=== PATIENT | male | born 1995 | race Caucasian/White ===

== ENCOUNTER 2017-06-15 15:25 | Emergency (ER) | payer OTHER ==
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
--- NOTE | 2017-06-15 16:03 | ED MED RECONCILIATION SUMMARY ---
Patient: ELEAZAR RAMIREZ Medication Reconciliation Report [facility] VisitID: [id number] [address] [place] [address] 22y, M Registration Date/Time: 06/15/2017 Weight: 72.5 kg Height/Length: 72 in. BMI: 21.7 ALLERGIES: None The patient's Home Medications are listed below: NONE. The source(s) of the original Home Medication information: patient The following Medications were given to the patient in the Emergency Department: None. The following Medications were prescribed to the patient: None.
--- NOTE | 2017-06-15 16:03 | ED MAR SUMMARY ---
..... Medication Administration Record [facility] [address] [place] [place], [place] [id number] Patient: ELEAZAR RAMIREZ Visit ID: [id number] 22y, M Weight: 72.5 kg Height/Length: 72 in BMI: 21.7 ALLERGIES: None
--- NOTE | 2017-06-15 16:03 | ED MED RECONCILIATION SUMMARY ---
Patient: ELEAZAR RAMIREZ Medication Reconciliation Report [facility] VisitID: [id number] [address] [place] [address] 22y, M Registration Date/Time: 06/15/2017 Weight: 72.5 kg Height/Length: 72 in. BMI: 21.7 ALLERGIES: None The patient's Home Medications are listed below: NONE. The source(s) of the original Home Medication information: patient The following Medications were given to the patient in the Emergency Department: None. The following Medications were prescribed to the patient: None.
--- NOTE | 2017-06-15 16:03 | ED MAR SUMMARY ---
..... Medication Administration Record [facility] [address] [place], [place] [id number] Patient: ELEAZAR RAMIREZ Visit ID: [id number] 22y, M Weight: 72.5 kg Height/Length: 72 in BMI: 21.7 ALLERGIES: None
== END 2017-06-15 16:00 | disposition left against medical advice (07) ==
LOC: ED SRH 15:25
DX: Z53.21 Procedure and treatment not carried out due to patient leaving prior to being seen by health care provider (principal)